=== PATIENT | female | born 1985 | race Caucasian/White ===

== ENCOUNTER 2025-01-21 13:25 | Emergency (ER) | payer OTHER, SELFPAY ==
--- NOTE | ~2025-01-21 | XR_ITS ---
XR elbow LT min 3V Ordering provider: Antonella Sauer MD History: . pulled/hurt L elbow X 2 DAYS . Comparison: None. FINDINGS: BONES: No acute fracture or dislocation. JOINT SPACES: Normal. SOFT TISSUES: Normal. No definite joint effusion. IMPRESSION: No acute osseous abnormality left elbow. Reviewed, dictated and finalized at location A.
--- NOTE | 2025-01-21 14:17 | ED.UPPEXIN ---
HPI - Extremity Injury (Upper) General Chief Complaint: Extremity Injury, Upper Stated Complaint: arm injury Time Seen by Provider: 01/21/25 14:10 History of Present Illness HPI narrative: Patient was at work two days ago trying to stow an item at [employer] when her left arm got yanked and then her elbow got dragged and pulled across multiple shelves. Since then it has been hurting especially when she tries to bend it. Related Data Allergies Allergy/AdvReac Type Severity Reaction Status Date / Time Penicillins Allergy Severe Anaphylaxis Verified 01/21/25 14:28 mushroom Allergy Intermediate Other Verified 01/21/25 14:28 Review of Systems Review of Systems: All systems reviewed & are unremarkable except as noted in HPI and below Exam Narrative: EXAMINATION OF ORGAN SYSTEMS/BODY AREAS: Constitutional: Vital signs per nursing GENERAL:[No acute distress, non-toxic appearing.] HEAD: Normal with no signs of head trauma. EYES: EOMI, conjunctiva normal ENT: Hearing grossly intact LUNGS: Nonlabored breathing. HEART: [Regular rate and rhythm], normal radial pulse ABD: [Soft], [nontender to palpation] EXT: Pain with trying to bend left elbow past 90? SKIN: [No rashes or lesions.] NEURO: [Alert and oriented x 3. No gross focal sensory or strength deficits.] PSYCH: Normal affect MDM - Extremity Injury (Upper) MDM Narrative Medical decision making narrative: 39-year-old female presenting with left elbow injury from 2 days ago, she is neurovascularly intact, however pain is real assisted when trying to flex elbow past 90?, x-ray thankfully negative for acute fracture, she already has the elbow brace, I will have her follow with Orthopedics if not improved. Patient agreeable to this plan. Discharge Plan Discharge Clinical Impression: Elbow sprain Patient Disposition: Home Condition: Stable Instructions: Elbow Sprain (ED) Additional Instructions: Thankfully your x-ray does not show any broken bones. Please follow up with the orthopedist if you continue to have pain in the elbow; you can always return for any further issues. Patient Language: Kinyarwanda Prescriptions: New acetaminophen [Tylenol Extra Strength] 500 mg tablet 1,000 mg PO Q6H PRN (Reason: pain) Qty: 50 0RF ibuprofen 600 mg tablet 600 mg PO TID PRN (Reason: fever or pain) Qty: 30 0RF Follow-up/Referrals: PHYSICIAN,MANNEQUIN WIG MAKER [Primary Care Provider] - Westley Catherine MD [Physician] - 2 Days
--- OUTSIDE RECORDS SUMMARY | 2025-01-21 15:09 | XMS_ITS | Patient Health Record ---
Author Organization [facility] Address [address] [place], [place] [id number] Care Team Providers Care Online Marketing Coordinator Name Role Phone EMMANUEL CROOKS Unavailable [phone] Answer, Declined Unavailable Unavailable Allergies Allergen (clinical drug ingredient) Drug/Non Drug Allergy documented on EMR Reaction Allergy Type Onset Date Status Penicillin Unknown Drug Allergy Active Reason For Referral No Information Social History Tobacco Use: Social History Observation Description Date Details (start date - stop date) Never Smoker NA - NA Tobacco Use/Smoking Question Answer Notes Tobacco use: nonsmoker Plan Of Treatment No Information Insurance Providers Payer Name Payer Address Payer Phone Subscriber Number Group Number Insured Name Patient Relationship to Insured Coverage Start Date Coverage End Date [employer] [address] [place] [address] [id number] HERMINIO SANTANA Self - patient is the insured Medical (General) History Medical History History ICD Code varicose veins Surgical History Surgery Date(Month/Year) appendectomy
--- OUTSIDE RECORDS SUMMARY | 2025-01-21 15:09 | XMS_ITS | Clinical Summary ---
Author Organization [facility] Address [address] [place] [address] Care Team Providers Care Children'[address] Magistrate Name Role Phone Unavailable Primary Care Provider Unavailabl e Source Comments [facility],non-owned Affiliates and Associated Physician Practices is amultiple site organization consisting of ambulatory clinics and hospital sitesin [place], [place], [place] and [place]. This disclosure is being madepursuant to the Care Everywhere program and may not contain all information available regarding this patient. Last updated 18.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 Gender Identity Not on file Sexual Orientation Not on file Plan of Treatment Health Maintenance Due Date Last Done Comments HIV SCREENING 2000 HEPATITIS C SCREENING 11/22/2003 DTAP/TDAP/TD VACCINES (1 - Tdap) 2004 HEPATITIS B VACCINE (1 of 3 - 19+ 3-dose series) 2004 HPV VACCINE (1 - 3-dose SCDM series) 2012 COVID-19 VACCINE ( - 2023-2 5 season) 2024 DEPRESSION SCREENING 07/09/2024 INFLUENZA VACCINE (#1) 2025 ZOSTER VACCINE (1 of 2) 11/27/2035 HIB VACCINE Aged Out No longer eligi ble based on patient's age to complete this topic MENINGOCOCCAL (Group B) VACC INE SHARED DECISION-MAKING Aged Out No longer eligibl e based on patient's age to complete this topic MENINGOCOCCAL GROUPS A/C/Y/W VACCINE Aged Out No longer eligible b ased on patient's age to complete this topic PNEUMOCOCCAL VACCINE Aged Out No long er eligible based on patient's age to complete this topic
--- OUTSIDE RECORDS SUMMARY | 2025-01-21 15:09 | XMS_ITS | Clinical Summary ---
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 Gender Identity Not on file Sexual Orientation Not on file Last Filed Vital Signs Vital Sign Reading Time Taken Comments Blood Pressure 122/68 04/17/2022 2:32 PM CDT Pulse 78 04/17/2022 2:32 PM CDT Temperature 37 C (98.6 F) 04/17/2022 10:24 AM CDT Respiratory Rate 19 04/17/2022 2:32 PM CDT Oxygen Saturation 98% 04/17/2022 2:32 PM CDT Inhaled Oxygen Concentration - - Weight 100.6 kg (221 lb 12.5 oz) 2021 10:24 AM CDT Height - - Body Mass Index - - Plan of Treatment Health Maintenance Due Date Last Done Comments Cervical Cancer Screening 1985 Depression Screening 1985 Hepatitis C Screening 1985 DTaP/Tdap/Td Vaccine (1 - Tdap) 1996 Varicella Vaccines (1 of 2 - 13+ 2-dose series) 1998 Hepatitis B Screening 11/27/2003 Regular Well Visit/Exam 18-64 11/27/2003 Influenza Vaccine (Season Ended) 2025 HPV Vaccines Aged Out No longer eligi ble based on patient's age to complete this topic Pneumococcal vaccine <65 Aged Out No longer eligible based on patient's age to complete this topic Insurance [employer] HMO/POS Care Teams Administrative Assistant Coordinator Relationship Specialty Start Date End Date No, Physician PCP - General 04/17/22
--- OUTSIDE RECORDS SUMMARY | 2025-01-21 15:09 | XMS_ITS | Clinical Summary ---
Author Organization [facility] Address [address] [place] [address] Care Team Providers Care Tentering Machine Feeder Name Role Phone Unavailable Primary Care Provider Unavailabl e Social History Tobacco Use Types Packs/Day Years Used Date Smoking Tobacco: Never Assessed Comments Unknown Sex and Gender Information Value Date Recorded Sex Assigned at Not on file Legal Sex Female 7:11 PM CDT Gender Identity Not on file Sexual Orientation Not on file Last Filed Vital Signs Vital Sign Reading Time Taken Comments Blood Pressure 98/68 09/27/2017 8:22 AM CDT Pulse 128 09/27/2017 8:22 AM CDT Temperature - - Respiratory Rate - - Oxygen Saturation - - Inhaled Oxygen Concentration - - Weight 89.4 kg (197 lb) 09/27/2017 8:22 AM CDT Height 165.7 cm (5' 5.25) 09/27/2017 8:22 AM CD T Body Mass Index 32.53 09/27/2017 8:22 AM CDT Plan of Treatment Health Maintenance Due Date Last Done Comments Cervical Cancer Screening Pa p Smear (Age 30 to 64) Every 3 Years 1985 Annual Physical 1988 Hepatitis C 11/27/2003 DTaP, Tdap and Td Vaccines ( 1 - Tdap) 2004 Hepatitis B Vaccines (1 of 3 - 19+ 3-dose series) 2004 Cervical Cancer Screening Pa p with HPV Testing (Age 30 to 64) Every 5 Years 11/27/2015 Cervical Cancer Screening with HPV 11/27/2015 COVID-19 Vaccine (2023-2 5 season) 2024 HPV Vaccines Aged Out No longer eligi ble based on patient's age to complete this topic Meningococcal B Vaccine Aged Out No l onger eligible based on patient's age to complete this topic Meningococcal Vaccine Aged Out No jemima ayde eligible based on patient's age to complete this topic Pneumococcal Vaccine: Pediat rics (0 to 5 Years) and At-Risk Patients (6 to 49 Years) Aged Out No longer eligible b ased on patient's age to complete this topic RSV Immunizations Under 20 Months Aged Out No longer eligible based on patient's age to complete this topic
--- OUTSIDE RECORDS SUMMARY | 2025-01-21 15:09 | XMS_ITS | Referral Summary ---
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
== END 2025-01-21 15:22 | disposition home or self-care (01) ==
PROVIDERS: Emergency Provider Emergency Medicine
DX: S53.402A Unspecified sprain of left elbow, initial encounter (principal); X50.0XXA Overexertion from strenuous movement or load, initial encounter
CPT/HCPCS: 73080; 99283